=== PATIENT | male | born 1970 | race Caucasian/White ===

== ENCOUNTER 2016-03-12 16:43 | Emergency (ER) | payer BC ==
--- NOTE | 2016-03-12 17:32 | ED ---
General Adult HPI - General Chief complaint: Chest Pain Stated complaint: Chest Pressure, Nausea Time Seen by Provider: 03/12/16 16:58 Source: patient, RN notes reviewed Mode of arrival: ambulatory Limitations: no limitations - History of Present Illness Initial comments: Patient is a 45-year-old male who presents emergency room today with a chief complaint of palpitations with chest pain and fatigue on and off over the last 5 days. Patient does admit that his had similar symptoms in the past. 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 Patient states that he's had these symptoms in the past with palpitations. He states he was working out the other day 5 days ago and felt very fatigued all some. States she's noticed that with any activity over the weekend he's felt very fatigued. Patient states that he's not having chest pain but has had some palpitations. Patient denies any other complaints or associated symptoms. Patient denies any recent fever, chills, shortness of breath, chest pain, back pain, abdominal pain, nausea or vomiting, numbness or tingling, dysuria or hematuria, constipation or diarrhea, headaches or visual changes, or any other complaints. - Related Data Home Medications Medication Instructions Recorded Confirmed Atorvastatin Calcium [Lipitor] 10 mg PO HS 01/15/14 03/12/16 Carvedilol [Coreg] 3.125 mg PO BID 04/04/14 03/12/16 Fish Oil(Unknown) 2 cap PO DAILY 03/12/16 03/12/16 Multivitamins, Thera [Multivitamin] 1 tab PO HS 03/12/16 03/12/16 Allergies Allergy/AdvReac Type Severity Reaction Status Date / Time No Known Allergies Allergy Verified 03/12/16 18:11 Review of Systems ROS Statement: Those systems with pertinent positive or pertinent negative responses have been documented in the HPI. ROS Other: All systems not noted in ROS Statement are negative. Past Medical History Past Medical History: Atrial Fibrillation, Heart Failure, Hyperlipidemia, Hypertension, Syncope Additional Past Medical History / Comment(s): ASYMPTOMATIC LEFT VENTRICULAR DYSFUNCTION, had afib 1 time while having chick pox at age 24. cardiomyopathy History of Any Multi-Drug Resistant Organisms: None Reported Past Surgical History: Heart Catheterization, Orthopedic Surgery, Tonsillectomy Additional Past Surgical History / Comment(s): NEYDA KNEE SURGERYS, ANKLE SURGERY , RIGHT SHOULDER SURGERY, UVULA REMOVED, HEART CATH 06/2008 (CLEAR) Additional Past Anesthesia/Blood Transfusion Reaction / Comment(s): STATES SLOW TO WAKE UP FROM ANESTHESIA Past Psychological History: No Psychological Hx Reported Smoking Status: Never smoker Past Alcohol Use History: None Reported Past Drug Use History: None Reported - Past Family History Mother Family Medical History: Supraventricular Tachycardia (SVT) Additional Family Medical History / Comment(s): PATERNAL GRANDMOTHER HAD CHF WELL A CARDIAC ARRYTHMIA General Exam - General Exam Comments Initial Comments: General: The patient is awake and alert, in no distress, and does not appear acutely ill. Eye: Pupils are equal, round and reactive to light, extra-ocular movements are intact. No nystagmus. There is normal conjunctiva bilaterally. No signs of icterus. Ears, nose, mouth and throat: There are moist mucous membranes and no oral lesions. Neck: The neck is supple, there is no tenderness or JVD. Cardiovascular: There is a regular rate and rhythm. No murmur, rub or gallop is appreciated. Respiratory: Lungs are clear to auscultation, respirations are non-labored, breath sounds are equal. No wheezes, stridor, rales, or rhonchi. Gastrointestinal: Soft, non-distended, non-tender abdomen without masses or organomegaly noted. There is no rebound or guarding present. No CVA tenderness. Bowel sounds are unremarkable. Musculoskeletal: Normal ROM, no tenderness. Strength 5/5. Sensation intact. Pulses equal bilaterally 2+. Neurological: A&O x 3. CN II-XII intact, There are no obvious motor or sensory deficits. Coordination appears grossly intact. Speech is normal. Skin: Skin is warm and dry and no rashes or lesions are noted. Psychiatric: Cooperative, appropriate mood & affect, normal judgment. Limitations: no limitations Course Vital Signs 03/12/16 03/12/16 16:53 18:13 Temperature 98.1 F Pulse Rate 74 57 L Respiratory 20 14 Rate Blood Pressure 132/81 112/77 O2 Sat by Pulse 100 100 Oximetry EKG Findings - EKG Comments: EKG Findings:: EKG performed at 1700: A 12-lead EKG was performed and interpreted by me as showing the following: Rate is 67, and rhythm is normal sinus. There are normal QRS complexes and normal R-wave progression. ST segments have no elevation or depression, and AL segments appear normal. Medical Decision Making - Medical Decision Making Patient's labs been reviewed are unremarkable. Patient's cardiac enzymes negative. His symptoms started 4-5 days ago. Patient's EKG is normal sinus rhythm here in the emergency room. Rhythm strip obtained by nursing staff does show frequent PVCs. Results were discussed with the patient. Case was discussed with attending physician Dr. Griggs. 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 He does have an appointment in 2 days. He is advised return to emergency room if any symptoms increase or worsen or for any other concerns. - Lab Data Result diagrams: 03/12/16 18:05 03/12/16 18:05 Lab Results 03/12/16 03/12/16 03/12/16 Range/Units 18:05 18:05 18:05 WBC 7.5 (3.8-10.6) k/uL RBC 5.09 (4.30-5.90) m/uL Hgb 15.6 (13.0-17.5) gm/dL Hct 44.4 (39.0-53.0) % MCV 87.3 (80.0-100.0) fL MCH 30.6 (25.0-35.0) pg MCHC 35.1 (31.0-37.0) g/dL RDW 12.0 (11.5-15.5) % Plt Count 220 (150-450) k/uL Neutrophils % 62 % Lymphocytes % 27 % Monocytes % 7 % Eosinophils % 2 % Basophils % 1 % Neutrophils # 4.7 (1.3-7.7) k/uL Lymphocytes # 2.1 (1.0-4.8) k/uL Monocytes # 0.5 (0-1.0) k/uL Eosinophils # 0.1 (0-0.7) k/uL Basophils # 0.1 (0-0.2) k/uL PT (9.0-12.0) sec INR (<1.1) APTT (22.0-30.0) sec Sodium 138 (137-145) mmol/L Potassium 4.4 (3.5-5.1) mmol/L Chloride 99 (98-107) mmol/L Carbon Dioxide 27 (22-30) mmol/L Anion Gap 12 mmol/L BUN 18 (9-20) mg/dL Creatinine 1.16 (0.66-1.25) mg/dL Est GFR (MDRD) Af Amer >60 (>60 ml/min/1.73 sqM) Est GFR (MDRD) Non-Af >60 (>60 ml/min/1.73 sqM) Glucose 103 H (74-99) mg/dL Calcium 9.8 (8.4-10.2) mg/dL Magnesium 2.0 (1.6-2.3) mg/dL Total Bilirubin 0.9 (0.2-1.3) mg/dL AST 22 (17-59) U/L ALT 35 (21-72) U/L Alkaline Phosphatase 65 (38-126) U/L Total Creatine Kinase 76 (55-170) U/L CK-MB (CK-2) 0.4 (0.0-2.4) ng/mL CK-MB (CK-2) Rel Index 0.5 Troponin I <0.012 (0.000-0.034) ng/mL Total Protein 7.6 (6.3-8.2) g/dL Albumin 4.7 (3.5-5.0) g/dL 03/12/16 Range/Units 18:05 WBC (3.8-10.6) k/uL RBC (4.30-5.90) m/uL Hgb (13.0-17.5) gm/dL Hct (39.0-53.0) % MCV (80.0-100.0) fL MCH (25.0-35.0) pg MCHC (31.0-37.0) g/dL RDW (11.5-15.5) % Plt Count (150-450) k/uL Neutrophils % % Lymphocytes % % Monocytes % % Eosinophils % % Basophils % % Neutrophils # (1.3-7.7) k/uL Lymphocytes # (1.0-4.8) k/uL Monocytes # (0-1.0) k/uL Eosinophils # (0-0.7) k/uL Basophils # (0-0.2) k/uL PT 12.0 (9.0-12.0) sec INR 1.2 (<1.1) APTT 24.7 (22.0-30.0) sec Sodium (137-145) mmol/L Potassium (3.5-5.1) mmol/L Chloride (98-107) mmol/L Carbon Dioxide (22-30) mmol/L Anion Gap mmol/L BUN (9-20) mg/dL Creatinine (0.66-1.25) mg/dL Est GFR (MDRD) Af Amer (>60 ml/min/1.73 sqM) Est GFR (MDRD) Non-Af (>60 ml/min/1.73 sqM) Glucose (74-99) mg/dL Calcium (8.4-10.2) mg/dL Magnesium (1.6-2.3) mg/dL Total Bilirubin (0.2-1.3) mg/dL AST (17-59) U/L ALT (21-72) U/L Alkaline Phosphatase (38-126) U/L Total Creatine Kinase (55-170) U/L CK-MB (CK-2) (0.0-2.4) ng/mL CK-MB (CK-2) Rel Index Troponin I (0.000-0.034) ng/mL Total Protein (6.3-8.2) g/dL Albumin (3.5-5.0) g/dL Disposition Clinical Impression: Palpitations, PVC (premature ventricular contraction) Disposition: HOME SELF-CARE Condition: Good Instructions: Palpitations (ED) Additional Instructions: Please use medication as discussed. Please follow-up with family doctor/ hull outfit supervisor in the next 2 days of symptoms have not improved. Please return to emergency room if the symptoms increase or worsen or for any other concerns. Time of Disposition: 19:07
[2016-03-12 18:23] LABS: Basophils # (A) 0.1 k/uL (0-0.2); Basophils % (A) 1 %; CH 31.3; Eosinophils # (A) 0.1 k/uL (0-0.7); Eosinophils % (A) 2 %; HCT 44.4 % (39.0-53.0); HDW 2.52; HGB 15.6 gm/dL (13.0-17.5); Luc # (Auto) 0.13; Luc % (Auto) 2; Lymphocytes # (A) 2.1 k/uL (1.0-4.8); Lymphocytes % (A) 27 %; MCH 30.6 pg (25.0-35.0); MCHC 35.1 g/dL (31.0-37.0); MCV 87.3 fL (80.0-100.0); Mean Platelet Volume 7.2; Monocytes # (A) 0.5 k/uL (0-1.0); Monocytes % (A) 7 %; Neutrophils # (A) 4.7 k/uL (1.3-7.7); Neutrophils % (A) 62 %; RBC 5.09 m/uL (4.30-5.90); WBC 7.5 k/uL (3.8-10.6)
--- NOTE | 2016-03-12 18:36 | XR ---
EXAMINATION TYPE: XR chest 2V DATE OF EXAM: 03/12/2016 6:18 PM COMPARISON: Prior chest x-ray 06 Jul 2015 HISTORY: Chest pain TECHNIQUE: Frontal and lateral views of the chest are obtained on 3 images. FINDINGS: There is no focal air space opacity, pleural effusion, or pneumothorax seen. The cardiac silhouette size is within normal limits. There are overlying cardiac leads. The osseous structures are intact. IMPRESSION: No acute cardiopulmonary process.
[2016-03-12 18:39] LABS: ALT 35 U/L (21-72); AST 22 U/L (17-59); Alkaline Phosphatase 65 U/L (38-126); Anion Gap 12 mmol/L; Blood Urea Nitrogen 18 mg/dL (9-20); Calcium 9.8 mg/dL (8.4-10.2); Carbon Dioxide 27 mmol/L (22-30); Chloride 99 mmol/L (98-107); Creatine Kinase 76 U/L (55-170); Glucose 103 mg/dL (74-99); Non-African American GFR(MDRD) >60 (>60 ml/min/1.73 sqM); Potassium 4.4 mmol/L (3.5-5.1); Sodium 138 mmol/L (137-145); Total Bilirubin 0.9 mg/dL (0.2-1.3); Total Protein 7.6 g/dL (6.3-8.2)
[2016-03-12 18:43] LABS: INR 1.2 (<1.1); Partial Thromboplastin Time 24.7 sec (22.0-30.0)
[2016-03-12 18:50] LABS: Creatine Kinase MB 0.4 ng/mL (0.0-2.4); Troponin I <0.012 ng/mL (0.000-0.034)
[2016-03-12 19:19] VITALS: BP 135/81; PULSE 73; RESP 18; TEMP 97.5
== END 2016-03-12 19:19 | disposition home or self-care (01) ==
LOC: EC 16:43
DX: R00.2 Palpitations (principal); I49.3 Ventricular premature depolarization; E78.5 Hyperlipidemia, unspecified; Z98.61 Coronary angioplasty status; I10 Essential (primary) hypertension; Z79.899 Other long term (current) drug therapy
CPT/HCPCS: 36415; 71020; 80053; 82550; 82553; 83735; 84484; 85025; 85610; 85730; 93005; 99285

== ENCOUNTER → 2016-04-18 | Outpatient (CLI) | payer BC ==
--- NOTE | 2016-04-18 10:50 | US ---
EXAMINATION TYPE: US abdomen complete DATE OF EXAM: 04/18/2016 10:25 AM COMPARISON: NONE CLINICAL HISTORY: K21.9 GERD, K81.0 CHOLECYTITIS. Indigestion after fatty meals per patient, also wit h mid and low back pain EXAM MEASUREMENTS: Liver Length: 14.5 cm Gallbladder Wall: 0.1 cm CBD: 0.3 cm Spleen: 11.2 cm Right Kidney: 10.2 x 5.5 x 4.0 cm Left Kidney: 11.0 x 5.2 x 5.1 cm TECHNOLOGIST IMPRESSION: Pancreas: wnl Liver: wnl Gallbladder: wnl Evidence for sonographic Berrios's sign: No CBD: wnl Spleen: wnl Right Kidney: wnl Left Kidney: wnl Upper IVC: wnl Abd Aorta: wnl The liver is homogenous. The intrahepatic portion of the IVC and proximal abdominal aorta are within normal limits. There is no evidence of cholelithiasis. Common bile duct is unremarkable. The visu alized portions of the pancreas are homogenous. The spleen is unremarkable. Kidneys are symmetric a nd free of hydronephrosis. No renal lesions are seen. IMPRESSION: No significant finding is seen to account for patient's symptoms on images saved.
== END | disposition home or self-care (01) ==
LOC: RADUSWWP 09:52
PROVIDERS: ATTEND Family Medicine
DX: K21.9 Gastro-esophageal reflux disease without esophagitis (principal); K81.0 Acute cholecystitis
CPT/HCPCS: 76700

== ENCOUNTER → 2016-05-02 | Outpatient (CLI) | payer BC ==
--- NOTE | 2016-05-03 08:13 | NM ---
EXAMINATION TYPE: NM hepatobiliary w EF DATE OF EXAM: 05/02/2016 5:02 PM COMPARISON: NONE INDICATION: Cholecystitis TECHNIQUE: After the intravenous administration of 5.3 mCi Tc 99m Mebrofenin hepatobiliary scintigrap hy is performed. Images were obtained immediately post injection. FINDINGS: There is prompt uptake and excretion of radiotracer by the liver. Extrahepatic ducts are identified at 7 minutes. The gallbladder is visualized within 11 minutes. Small bowel activity is noted within 15 minutes. At one hour 8 ounces of oral ensure plus is given to mimic CCK and gallbladder ejection fraction is c alculated at 76 %, which is in the normal range. (Normal >35% and <80%.). IMPRESSION: 1. Normal hepatobiliary scan
== END | disposition home or self-care (01) ==
LOC: RADNMMAIN 14:56
PROVIDERS: ATTEND Family Medicine
DX: K81.0 Acute cholecystitis (principal)
CPT/HCPCS: 78226; A9537

== ENCOUNTER 2019-09-15 10:16 | Day surgery (SDC) | payer BC ==
[2019-09-12 15:24] VITALS: BMI 23.7
[~2019-09-15 10:16] MED LIST: LACTATED RINGERS 1,000 ML IV SCH
[2019-09-15 10:46] VITALS: RESP 16; TEMP 97.4
[2019-09-15] MEDS ORDERED: LIDOCAINE 1% (10MG/ML) FOR IV START INTRADERMA ONE (10:46)
--- NOTE | 2019-09-15 11:36 | P.GSHP ---
History of Present Illness H&P Date: 09/15/19 Chief Complaint: Screening colonoscopy This a 49-year-old male presents today for screening colonoscopy patient denies any significant complaints. Past Medical History Past Medical History: Atrial Fibrillation, Heart Failure, Hyperlipidemia, Hypertension, Syncope Additional Past Medical History / Comment(s): ASYMPTOMATIC LEFT VENTRICULAR DYSFUNCTION, had afib 1 time while having chick pox at age 24. cardiomyopathy History of Any Multi-Drug Resistant Organisms: None Reported Past Surgical History: Heart Catheterization, Orthopedic Surgery, Tonsillectomy Additional Past Surgical History / Comment(s): NEYDA KNEE SURGERYS, ANKLE SURGERY, RIGHT SHOULDER SURGERY, UVULA REMOVED, HEART CATH 06/2008 (CLEAR) Past Anesthesia/Blood Transfusion Reactions: Previous Problems w/ Anesthesia Additional Past Anesthesia/Blood Transfusion Reaction / Comment(s): STATES SLOW TO WAKE UP FROM ANESTHESIA Past Psychological History: No Psychological Hx Reported Past Alcohol Use History: None Reported Past Drug Use History: None Reported - Past Family History Mother Family Medical History: Supraventricular Tachycardia (SVT) Additional Family Medical History / Comment(s): PATERNAL GRANDMOTHER HAD CHF WELL A CARDIAC ARRYTHMIA Medications and Allergies Home Medications Medication Instructions Recorded Confirmed Type Atorvastatin Calcium [Lipitor] 10 mg PO HS 01/15/14 09/15/19 History Carvedilol [Coreg] 3.125 mg PO HS 04/04/14 09/15/19 History Fish Oil(Unknown) 2 cap PO DAILY 03/12/16 09/15/19 History Multivitamins, Thera [Multivitamin] 1 tab PO HS 03/12/16 09/15/19 History Escitalopram [Lexapro] 10 mg PO DAILY 09/12/19 09/15/19 History Allergies Allergy/AdvReac Type Severity Reaction Status Date / Time No Known Allergies Allergy Verified 09/15/19 10:37 Surgical - Exam Vital Signs Temp Pulse Resp BP Pulse Ox 97.4 F L 66 16 132/89 94 L 09/15/19 10:44 09/15/19 10:44 09/15/19 10:44 09/15/19 10:44 09/15/19 10:44 - General well developed, well nourished, no distress - Eyes PERRL - ENT normal pinna - Neck no masses - Respiratory normal expansion - Cardiovascular Rhythm: regular - Abdomen Abdomen: soft, non tender Assessment and Plan Assessment: We'll perform screening colonoscopy.
[2019-09-15] MEDS ORDERED: PROPOFOL 10 MG/ML 20 ML VIAL IV ONE (11:39)
--- NOTE | 2019-09-15 11:58 | P.OP ---
Date of Procedure: 09/15/19 Preoperative Diagnosis: Screening colonoscopy Postoperative Diagnosis: Normal colon Procedure(s) Performed: Colonoscopy Anesthesia: MAC Surgeon: Ramana Oneill Pathology: none sent Condition: stable Disposition: PACU Description of Procedure: PROCEDURE: The patient was placed on the endoscopy table in the lateral position. Digital rectal examination was performed which revealed no abnormalities. The prostate was symmetrical without nodules. Flexible colonoscope was then placed in the patient's anus and passed throughout the entire colon. The ileocecal valve was visualized. The cecum, ascending, transverse, descending and sigmoid colon were normal. The rectum was normal as well. There were no masses, polyps or diverticula noted in the entire colon. SUMMARY OF FINDINGS: Normal colonoscopy.
[2019-09-15 12:16] VITALS: BP 126/83; PULSE 72
== END 2019-09-15 12:27 | disposition home or self-care (01) ==
LOC: ORWHC2ENDO 10:16
PROVIDERS: ATTEND Surgery
DX: Z12.11 Encounter for screening for malignant neoplasm of colon (principal); I11.0 Hypertensive heart disease with heart failure; I50.9 Heart failure, unspecified; I42.9 Cardiomyopathy, unspecified; I48.91 Unspecified atrial fibrillation; E78.5 Hyperlipidemia, unspecified; K21.9 Gastro-esophageal reflux disease without esophagitis; Z79.899 Other long term (current) drug therapy; Z79.02 Long term (current) use of antithrombotics/antiplatelets; Z90.89 Acquired absence of other organs; Z98.890 Other specified postprocedural states; Z82.49 Family history of ischemic heart disease and other diseases of the circulatory system
CPT/HCPCS: J2704; G0121

== ENCOUNTER 2022-07-24 11:56 | Day surgery (SDC) | payer OTHER ==
[2022-07-22 13:31] VITALS: BMI 23.0
[2022-07-24] MEDS ORDERED: SODIUM CHLORIDE 0.9% 1,000 ML IV ONE (12:08)
[2022-07-24 12:31] LABS: Basophils % (A) 1 %; Eosinophils # (A) 0.2 k/uL (0-0.7); Eosinophils % (A) 2 %; HCT 47.1 % (39.0-53.0); HGB 15.8 gm/dL (13.0-17.5); Lymphocytes # (A) 2.2 k/uL (1.0-4.8); Lymphocytes % (A) 32 %; MCH 30.6 pg (25.0-35.0); MCHC 33.5 g/dL (31.0-37.0); MCV 91.2 fL (80.0-100.0); Mean Platelet Volume 7.7; Monocytes # (A) 0.6 k/uL (0-1.0); Monocytes % (A) 8 %; Neutrophils # (A) 3.7 k/uL (1.3-7.7); Neutrophils % (A) 54 %; Platelet Count 191 k/uL (150-450); RBC 5.17 m/uL (4.30-5.90); WBC 6.8 k/uL (3.8-10.6)
[2022-07-24 12:56] LABS: African American GFR (CKD) >90 (>60 ml/min/1.73 sqM); Anion Gap 9 mmol/L; Blood Urea Nitrogen 17 mg/dL (9-20); Calcium 9.5 mg/dL (8.4-10.2); Carbon Dioxide 30 mmol/L (22-30); Chloride 100 mmol/L (98-107); Glucose 95 mg/dL (74-99); Non-African American GFR(CKD) 87 (>60 ml/min/1.73 sqM); Potassium 3.8 mmol/L (3.5-5.1); Sodium 139 mmol/L (137-145)
[2022-07-24] MEDS ORDERED: CALCIUM CHLORIDE 100 MG/ML 10 ML SYRINGE ONE (14:44)
[2022-07-24] MEDS ORDERED: ISOPROTERENOL 250 MCG/1.25 ML SYR IV ONE (14:44)
[2022-07-24] MEDS ORDERED: fentaNYL (PF) 50 MCG/ML 2 ML AMP ONE (14:44)
[2022-07-24] MEDS ORDERED: MIDAZOLAM 2 MG/2 ML VIAL ONE (14:44)
[2022-07-24] MEDS ORDERED: LIDOCAINE 1% INJ 10MG/ML (20 ML MDV) ONE (14:59)
[2022-07-24] MEDS ORDERED: LIDOCAINE 1% INJ 10MG/ML (30 ML VIAL-PF) SQ ONE (15:25)
[2022-07-24] MEDS ORDERED: HEPARIN SODIUM (1,000 UNIT/ML) 1,000 UNIT in SODIUM CHLORIDE 0.9% 1,000 ML IRRIGATION ONE (15:44)
--- NOTE | 2022-07-24 17:40 | P.EPPROC ---
- EP Procedure Note Electrophysiology Procedure Note: Diagnosis Very frequent PVCs, high PVC burden from the right ventricle outflow tract region, symptomatic Mostly at rest, suppressed with exertion Cardio myopathy ejection fraction between 40-50% by recent LV function assessment Final diagnosis PVCs originating from the posterior septum Earliest activation site and the best pace Were about 7 mm apart 99% concordance of the pacemaker to his clinical PVCs Excellent and early unipolar and bipolar signals, -29 ms before the onset of the PVC with multiple fractionated signals Details Patient was brought to the EP lab in a fasting state. Written informed consent was obtained prior to the procedure. The right left groins were prepped and draped as a protocol did venous sheaths were placed in the left femoral vein. Patient was experiencing occasional outflow tract PVCs Initially a diagnostic RV catheter, coronary sinus catheter placed deep into the anterior interventricular vein were placed to get equipment mapped of the PVCs The PVC signal in the coronary sinus catheter was late There were early in the RV septum Following that, 3-D electro-anatomic mapping was performed. Intracardiac echo and with mapping and ablation catheter The earliest activation was sought and was found in the posterior septum just about a centimeter below the pulmonic valve The earliest activation site had early fractionated signals about -29 ms with excellent distal bipolar and unipolar signals The best pace mapping site was about 7 mm above the earliest activation site The pacemaker Concordance with the PVCs was 99.2% Intracardiac echo revealed that this was posterior septal and 1.5-1.7 cm away from the right coronary cusp Interatrial septal mapping was performed Bubble study is performed twice once for the anterior 1 the posterior interatrial septum There was no evidence for a PFO or ASD or right to left shunting Normal LV size and function noted in sinus rhythm Manual pressure application with the tip of the ablation catheter at the site resulted in suppression of PVCs RF ablation applied him. Initially 25-30 J RF energy with good contact force Thereafter very brief short bursts of 40 J application, 15 seconds at the site of best pace map an activation map The first lesion applied at the site of the best pace map resulted in a flurry of clinical PVCs But no further PVCs were inducible with further RF applications Following that a full diagnostic EP study is performed with CS pacing high right atrial pacing and RV pacing both on and off high dose Isuprel as well as during recovery Sinus cycle length 830 ms, CT interval 146 ms, QRS 95 and QT 388 ms Age 59 ms and HV 41 ms Burst stimulation from the right ventricle was performed from 400 ms down to 210 ms Ventricular extra stimulation was performed [address] trains, with double extra stimuli No PVCs no ventricular tachycardia induced AV node Wenckebach block 320 ms Sinus node recovery times at 600, 500 and, 400 ms were 1220, 1136 and 1906 ms Corrected to sinus recovery times abnormal High-dose IV Isuprel infused and then turned off and allow to washout No PVCs noted IV calcium infused No PVCs noted Intracardiac echo did not reveal any pericardial effusion The end of the procedure DOESN'T sheaths removed and Vascade closure applied Patient tolerated the procedure well without any acute complications Very mild conscious sedation given intermittently and for the substantial part of the procedure, the patient was awake
[2022-07-24] MEDS ORDERED: ACETAMINOPHEN TAB 325 MG TAB PO PRN (17:42)
[2022-07-24] MEDS ORDERED: ACETAMINOPHEN IV (For NPO) 1,000 MG in EMPTY BAG 1 BAG IVPB ONE (18:00)
[2022-07-24] MEDS: SODIUM CHLORIDE 0.9% 1,000 ML IV SCH (18:01)
[2022-07-24] MEDS ORDERED: ATORVASTATIN 10 MG TAB PO SCH (21:00)
[2022-07-25] MEDS: SODIUM CHLORIDE 0.9% 1,000 ML IV SCH (00:46)
[2022-07-25 08:02] VITALS: BP 102/68; PULSE 53; RESP 18; TEMP 97.7
[2022-07-25] MEDS ORDERED: ESCITALOPRAM 10 MG TAB PO SCH (09:00)
--- NOTE | 2022-07-25 10:47 | P.DS ---
Providers Attending physician: Henrry Callaway Primary care physician: [facility] Course: This is a 51-year-old male who underwent PVC ablation yesterday with Dr. Callaway. Patient is doing well post procedure with no complications noted. He denies chest pain or pressure. Denies shortness of breath. Vital signs are stable. He was deemed stable for discharge home today per Dr. Callaway. Please see EMR for further hospital course details. Discharge diagnosis Very frequent PVCs, high PVC burden from the right ventricle outflow tract region, symptomatic, mostly at rest, suppressed with exertion, status post PVC ablation Cardiomyopathy ejection fraction between 40-50% by recent LV function assessment Nurse practitioner note has been reviewed by physician. Signing provider agrees with the documented findings, assessment, and plan of care. Plan - Discharge Summary Discharge Rx Participant: No New Discharge Prescriptions: Continue Atorvastatin Calcium [Lipitor] 10 mg PO HS Escitalopram [Lexapro] 10 mg PO DAILY Metoprolol Succinate [Metoprolol Succinate ER] 25 mg PO DAILY Discharge Medication List Atorvastatin Calcium [Lipitor] 10 mg PO HS 01/15/14 [History] Escitalopram [Lexapro] 10 mg PO DAILY 09/12/19 [History] Metoprolol Succinate [Metoprolol Succinate ER] 25 mg PO DAILY 07/22/22 [History] Follow up Appointment(s)/Referral(s): Henrry Callaway MD [STAFF PHYSICIAN] - 07/30/22 8:30 am (make appointment for early next week. patient going back to [place] next Appointment will be at the [facility]. location) Patient Instructions/Handouts: Cardiac Ablation (DC) Activity/Diet/Wound Care/Special Instructions: Post EP study - Ablation instructions 1. Keep access sites dry for 2 days. 2. No heavy lifting or straining for 2 days. 3. Avoid bending the hips repeatedly for 2 days. 4. You may go up and down stairs slowly Call if the following is noted 1. Bleeding, increasing swelling or pain at the access sites. 2. Increasing chest discomfort, especially upon taking a deep breath. 3. Increasing shortness of breath, at rest or with exertion. 4. Undue cough / phlegm 5. Difficulty or pain while swallowing. 6. Pain or change in color in the extremities. 7. Fever, chills, rigors. 8. Increasing headache or neurologic symptoms. 9. Dizziness, fainting, palpitations Discharge Disposition: HOME SELF-CARE
[2022-07-25 16:20] LABS: Chol/HDL Ratio 3.07 Ratio; LDL Cholesterol,Calculated 76.6 mg/dL (0.0-131.0)
--- NOTE | 2022-07-26 16:27 | CA ---
Transthoracic Echo Report Name: Jozef Petersen Age: 51 Gender: M : 1970 Exam Date: 07/25/2022 13:54 Exam Location: [place] [facility] Ht (in): 75 Wt (lb): 185 Ordering Physician: Deidra Doe Attending/Referring Phys: [id number], Brook Whitewasher Kristine Shetty, LUCI Procedure CPT: Indications: evaluate RV and LV size and function Cardiac Hx: Technical Quality: Good Contrast 1: Lumason Total Dose (mL): 3 Contrast 2: Total Dose (mL): MEASUREMENTS (Male / Female) Normal Values 2D ECHO LV Diastolic Diameter PLAX 5.2 cm 4.2 - 5.9 / 3.9 - 5.3 cm LV Systolic Diameter PLAX 3.6 cm IVS Diastolic Thickness 1.0 cm 0.6 - 1.0 / 0.6 - 0.9 cm LVPW Diastolic Thickness 1.0 cm 0.6 - 1.0 / 0.6 - 0.9 cm LV Relative Wall Thickness 0.4 RV Internal Dim ED PLAX 3.3 cm LA Systolic Diameter LX 3.7 cm 3.0 - 4.0 / 2.7 - 3.8 cm LV Diastolic Volume MOD 4C 91.6 cm??? LV Systolic Volume MOD 4C 43.7 cm??? LV Ejection Fraction MOD 4C 52.3 % LV Diastolic Length 4C 8.0 cm LV Systolic Length 4C 6.7 cm LV Diastolic Volume MOD 2C 102.2 cm??? LV Systolic Volume MOD 2C 41.9 cm??? LV Ejection Fraction MOD 2C 59.0 % LV Diastolic Length 2C 8.5 cm LV Systolic Length 2C 7.2 cm LA Volume 48.8 cm??? 18 - 58 / 22 - 52 cm??? M-MODE LV Diastolic Diameter MM 6.1 cm 4.2 - 5.9 / 3.9 - 5.3 cm LV Systolic Diameter MM 4.2 cm IVS Diastolic Thickness MM 1.0 cm 0.6 - 1.0 / 0.6 - 0.9 cm LVPW Diastolic Thickness MM 1.1 cm 0.6 - 1.0 / 0.6 - 0.9 cm LV Relative Wall Thickness MM 0.4 0.24 - 0.42 / 0.22 - 0.42 LV Mass Index MM 135.6 g/m??? 49 - 115 / 43 - 95 g/m??? DOPPLER AV Peak Velocity 155.6 cm/s AV Peak Gradient 9.7 mmHg MV Area PHT 3.6 cm??? Mitral E Point Velocity 93.3 cm/s Mitral A Point Velocity 77.2 cm/s Mitral E to A Ratio 1.2 MV Deceleration Time 210.0 ms FINDINGS Left Ventricle Left ventricular ejection fraction is estimated at 50-55 %. The largest diameter of LV in diastole is 6.1 cm by M mode, and the smolest is 5.2 by 2D Right Ventricle Mild right ventricular dilatation. 3.3-3.4 cm. Good RV systolic function. Unable to estimate the right ventricular systolic pressure. Right Atrium Normal right atrial size. Left Atrium Normal left atrial size. Mitral Valve Structurally normal mitral valve. No mitral stenosis, regurgitation or prolapse. Aortic Valve Trileaflet aortic valve. No aortic valve stenosis or regurgitation. Tricuspid Valve Structurally normal tricuspid valve. No tricuspid stenosis, regurgitation or prolapse. Pulmonic Valve Structurally normal pulmonic valve. No pulmonic regurgitation. Pericardium Normal pericardium. No pericardial effusion. Aorta CONCLUSIONS Dilated LV with left ventricular ejection fraction of 50-55% Mildly enlarged RV with normal RV systolic function No significant valvular abnormalities Patient is status post ablation of septal RVOT PVCs Previewed by: Dr. Henrry Callaway MD (Electronically Signed) Final Date: 26 Jul 2022 16:27
== END 2022-07-25 14:37 | disposition home or self-care (01) ==
LOC: CATHEP 11:56 → 6NMEDSUR 17:20 → CATHEP 07-25 14:37
PROVIDERS: ATTEND Internal Medicine Clinical Cardiac Electrophysiology
DX: I49.3 Ventricular premature depolarization (principal); I11.0 Hypertensive heart disease with heart failure; I50.9 Heart failure, unspecified; I48.91 Unspecified atrial fibrillation; E78.5 Hyperlipidemia, unspecified; K21.9 Gastro-esophageal reflux disease without esophagitis; E66.01 Morbid (severe) obesity due to excess calories; Z68.41 Body mass index [BMI] 40.0-44.9, adult; Z79.899 Other long term (current) drug therapy
CPT/HCPCS: 93308; 93623; 93654; 86900; 86901; 80061; 80048; 85025; 86850; 83036; C1894; C1769; C1760; C1730 ×2; C1731; C1759; C1732; J2001; J1644